=== PATIENT | male | born 1990 | race African-American/Black ===

== ENCOUNTER 2016-06-22 06:09 | Emergency (ER) | payer OTHER ==
--- NOTE | 2016-06-22 07:48 | ED ---
Throat Pain/Nasal Congestion - HPI Summary HPI Summary: Pt here w/ Lt eye irritation since 06/11/2016. Went to [place] ED the following day and dx'd w/ URI and told to take zyrtec. Pt reports his Lt eye has gotten worse since and now the other eye is red, irritated, itchy, burning and sensitive to light as well. He feels like his eye lids are swollen and is having difficulty opening his eyes d/t sensitivity. Does not use contact lenses and denies trauma to eyes but did try tea tree oil drops 2 days ago which was quite painful. Has tried some rewetting drops with minimal relief. Feels like something gritty is in Lt eye. Denies fever, chills, nasal congestion, rhinorrhea, ST, cough, sneezing, neck pain, N/V/D. - History of Current Complaint Chief Complaint: EDEyeProblem Time Seen by Provider: 06/22/16 07:15 Hx Obtained From: Patient - Allergies/Home Medications Allergies/Adverse Reactions: Allergies Allergy/AdvReac Type Severity Reaction Status Date / Time Shellfish Allergy Allergy Unknown Unknown Verified 12/24/15 09:09 Reaction Details PMH/Surg Hx/FS Hx/Imm Hx Previously Healthy: Yes Endocrine/Hematology History: Denies: Hx Diabetes, Autoimmune Disease Cardiovascular History: Denies: Hx Hypertension, Hx Pacemaker/ICD History: Denies: Hx Renal Disease Musculoskeletal History: Reports: Other Musculoskeletal History - herniated disk Sensory History: Denies: Hx Contacts or Glasses, Hx Hearing Aid Opthamlomology History: Denies: Hx Cataracts, Hx Contacts or Glasses, Hx Eye Prosthesis, Hx Glaucoma , Hx Legally Blind, Hx Vision Problem Psychiatric History: Denies: Hx Panic Disorder Infectious Disease History: No Infectious Disease History: Denies: Traveled Outside the [place] in Last 30 Days - Family History Known Family History: Positive: None - Social History Alcohol Use: Occasionally Hx Substance Use: Yes Substance Use Type: Reports: Marijuana Hx Tobacco Use: No Smoking Status (MU): Never Smoked Tobacco Review of Systems Constitutional: Negative Eyes: Other - see HPI ENT: Negative Cardiovascular: Negative Positive: Shortness Of Breath Gastrointestinal: Negative Positive: no symptoms reported Musculoskeletal: Negative Skin: Other - see HPI Neurological: Negative Positive: Anxious All Other Systems Reviewed And Are Negative: Yes Physical Exam Triage Information Reviewed: Yes Vital Signs On Initial Exam: Initial Vitals Temp Pulse Resp BP Pulse Ox 97.7 F 50 16 113/67 100 06/22/16 06:18 06/22/16 06:18 06/22/16 06:18 06/22/16 06:18 06/22/16 06:18 Vital Signs Reviewed: Yes Appearance: Positive: Well-Appearing, Well-Nourished, Pain Distress - eyes closed and lights off upon entry - pt tightens eyelids w/ light exposure Skin: Positive: Warm, Dry - eyelids appear mildly edematous Lt > Rt - no lawrence lesions Head/Face: Positive: Normal Head/Face Inspection - Sinuses NTTp Eyes: Positive: EOMI, ELIZABET, Conjunctiva Inflammed, Discharge - SCANT PURULENT DRAINAGE, Other: - PHOTOSENSITIVE ENT: Positive: Normal ENT inspection, Hearing grossly normal, Pharynx normal, TMs normal. Negative: Nasal congestion, Nasal drainage Neck: Positive: Supple, Nontender, No Lymphadenopathy Respiratory/Lung Sounds: Positive: Clear to Auscultation, Breath Sounds Present Cardiovascular: Positive: Normal, RRR Musculoskeletal: Positive: Normal, Strength/ROM Intact Neurological: Positive: Normal, Sensory/Motor Intact, Alert, Oriented to Person Place, Time, CN Intact II-III Psychiatric: Positive: Normal - CONCERNED Procedures - Eye Procedure Alcaine Drops Administered: Yes - NO ABRASION OR FB ID'd Eye Irrigated w/ Saline (ccs): 2 - 1CC PER EYE Diagnostics - Vital Signs Vital Signs Temp Pulse Resp BP Pulse Ox 06/22/16 06:18 97.7 F 50 16 113/67 100 - Laboratory Lab Statement: Any lab studies that have been ordered have been reviewed, and results considered in the medical decision making process. EENT Course/Dx - Course Course Of Treatment: Pt appears to have conjunctivitis of both eyes - this may have been triggered by recent URI however w/ worsening, offered anbx ointment. We did discuss the need to avoid putting anything into his eyes other than saline solution provided today and anbx ointment. F/u w/ Dr. Rojas tomorrow and if sx worse in the meantime, return to ED. - Diagnoses Provider Diagnoses: Conjunctivitis of both eyes Discharge - Discharge Plan Condition: Stable Disposition: HOME Patient Education Materials: Conjunctivitis (ED) Referrals: Abelino Rojas MD [Medical Doctor] - Additional Instructions: Your conjunctivitis may have been triggered by your recent URI however with worsening, would like you to try regular saline solution 5-6 x day. If this does not bring improvement in the next 24 hours, start antibiotic ointment. Avoid putting anything into your eyes other than saline solution provided today and anbx ointment. Follow-up with Dr. Rojas tomorrow. Call today to schedule an appointment. *If symptoms worse in the meantime, return to ED.
[2016-06-22 08:04] VITALS: BP 116/65
== END 2016-06-22 08:03 | disposition home or self-care (01) ==
LOC: ED 06:09
DX: H10.9 Unspecified conjunctivitis (principal); F41.9 Anxiety disorder, unspecified
CPT/HCPCS: 99282